=== PATIENT | female | born 1950 | race Caucasian/White ===

== ENCOUNTER 2017-12-25 14:35 | Outpatient (CLI) | payer MEDICARE ==
--- NOTE | 2017-12-25 17:50 | MRI ---
CERVICAL SPINE MRI WITHOUT CONTRAST: 12/25/17 HISTORY: Cervical radiculopathy. COMPARISON: None. TECHNIQUE: MRI cervical spine is performed without intravenous gadolinium administration. Multisequential, multi planar imaging is performed. FINDINGS: Appropriate T1 marrow signal intensity of the cervical vertebra. Vertebral body height is maintained. No fracture. 2 mm of anterolisthesis of C3 upon C4. Visualized brain parenchyma, cervicomedullary junction, cervical cord, and the upper thoracic cord craig s a normal size and signal intensity. No significant STIR hyperintensity to suggest vertebral body ed diana or ligamentous injury. C2-C3: No significant disc osteophyte complex. No significant central canal stenosis. Foramina are pa tent. C3-C4: No significant disc osteophyte complex. No significant central canal stenosis. Foramina are pa tent. C4-C5: Generalized disc bulge without significant central canal stenosis. Minimal right foraminal romero rowing. Left neural foramen is patent. C5-C6: There is a broad based disc osteophyte complex that abuts the thecal sac. No significant centr al canal stenosis. Right neural foramen is patent. Mild left foraminal narrowing. C6-C7: Broad based disc osteophyte complex with a small superior right sided disc extrusion. There i s abutment of the right aspect of the cervical cord just superior to the right C6-C7 disc space. Over all, there is mild central canal stenosis. There appears to be severe right foraminal narrowing. Left neural foramen is patent. C7-T1: No significant disc osteophyte complex. No significant central canal stenosis or foraminal romero rowing. IMPRESSION: Degenerative disc disease at C6-C7 with a superior right paracentral disc extrusion. There is encroac hment upon the right neural foramen with severe right neural foraminal narrowing at C6-C7. POS: [facility]
== END 2017-12-25 14:36 | disposition home or self-care (01) ==
LOC: SCSMRI 14:35
PROVIDERS: ATTEND Orthopaedic Surgery
DX: M50.123 Cervical disc disorder at C6-C7 level with radiculopathy (principal); M99.81 Other biomechanical lesions of cervical region
CPT/HCPCS: 72141

== ENCOUNTER 2019-09-16 08:17 | Outpatient (CLI) | payer MEDICARE ==
--- NOTE | 2019-09-16 10:48 | MRI ---
MRI LUMBAR SPINE WITHOUT CONTRAST: INDICATION: Low back pain with lumbar radiculopathy. COMPARISON: Comparison is made to a prior lumbar CT dated 2011. FINDINGS: The lumbar vertebrae maintain height. Loss of disk space with degenerative disk and end plate change s are seen at L4-5. The other disk spaces are preserved. The degenerative disk change at L4-5 has p rogressed since the prior CT scan. There is a grade I anterolisthesis at L4-5 which also has slightl y progressed since the prior study. Mild anterolisthesis was present at that time. There is diffuse broad-based bulge at this L4-5 level which compresses the thecal sac. There is associated facet and ligamentous hypertrophy and posterior epidural fat which also compress the thecal sac. These change s result in moderate to severe central canal stenosis at this level. There is bilateral foraminal na rrowing due to the broad-based bulge and listhesis. Foraminal stenosis more severe on the right. At L5-S1, there is a mild diffuse disk bulge abutting the anterior thecal sac. There is facet arthro sis and mild hypertrophy; however, no significant central canal stenosis. Mild bilateral foraminal n arrowing due to facet hypertrophy at this level. At L3-4, mild diffuse disk bulge. Facet and ligamentous hypertrophy. Mild central canal stenosis. At L2-3, no significant disk bulge. Mild facet hypertrophy. No central canal or foraminal stenosis. At L1-2, no disk bulge. No central canal or foraminal stenosis. IMPRESSION: 1. Degenerative disk and end plate changes at L4-5 with anterolisthesis as noted above. Moderate to severe central canal stenosis at this level with bilateral foraminal stenosis as described, more sev ere on the right as described above.. 2. See description at the other levels above. POS: [facility]
== END 2019-09-16 08:18 | disposition home or self-care (01) ==
LOC: SCSMRI 08:17
PROVIDERS: ATTEND Anesthesiology
DX: M51.17 Intervertebral disc disorders with radiculopathy, lumbosacral region (principal); M51.16 Intervertebral disc disorders with radiculopathy, lumbar region; M43.16 Spondylolisthesis, lumbar region; M48.061 Spinal stenosis, lumbar region without neurogenic claudication; M47.27 Other spondylosis with radiculopathy, lumbosacral region; M47.26 Other spondylosis with radiculopathy, lumbar region; M48.07 Spinal stenosis, lumbosacral region
CPT/HCPCS: 72148

== ENCOUNTER 2019-12-30 06:00 | Outpatient (CLI) | payer MEDICARE, OTHER ==
[2019-12-31 14:48] LABS: SARS-CoV-2 MS2 Positive; SARS-CoV-2 N Gene Negative; SARS-CoV-2 S Gene Negative; SARS-CoV-2 by NAA Not Detected (NotDetected); SARS-CoV-2 orf1ab Negative
== END 2019-12-30 06:01 | disposition home or self-care (01) ==
LOC: LABBT 06:00
PROVIDERS: ATTEND Neurological Surgery
DX: M43.16 Spondylolisthesis, lumbar region (principal); Z20.828 Contact with and (suspected) exposure to other viral communicable diseases
CPT/HCPCS: 87635; U0003

== ENCOUNTER 2020-01-04 07:31 | Day surgery (SDC) | payer MEDICARE ==
[2020-01-03 10:56] VITALS: BMI 22.4
--- NOTE | 2020-01-03 21:49 | HP ---
HISTORY OF PRESENT ILLNESS: Ms. López is a very pleasant 69-year-old woman presenting for lower back pain as well as significant lower extremity pain consistent with lumbar radiculopathy, the best fits in the L5 pattern. New MRI from [facility] reveals spondylolisthesis at L4-L5 with significant lateral recess and foraminal stenosis, that would certainly account for the pain she is experiencing. She has treated this with injections by Dr. Vee, which do help a great deal, but lose their efficacy rather quickly. She hopes to discuss surgical options. PAST MEDICAL HISTORY: Significant for chronic pain syndrome, headaches, arthritis, and anxiety. PAST SURGICAL HISTORY: section x2, unspecified shoulder surgery. MEDICATIONS: 1. Meloxicam. 2. Gabapentin. 3. Levothyroxine. 4. Alprazolam. 5. Atenolol. 6. Amitriptyline. 7. Baclofen. 8. Tramadol. ALLERGIES: NO KNOWN DRUG ALLERGIES. PHYSICAL EXAMINATION: GENERAL: The patient is alert and oriented x3. NEUROLOGIC: Gait is antalgic and slowed. ASSESSMENT: Lumbar spondylolisthesis with radiculopathy. PLAN: Dr. Guo met with the patient, reviewed imaging, advocated for L4-L5 facetectomy and fusion. He explained the patient risks, benefits, and alternatives to the procedure. The patient expressed understanding and elected to move forward with surgery as discussed. I do believe the patient is mentally competent and capable of making medical decisions for herself. We will move forward with surgery as planned. Job ID: [id number]
[2020-01-04] MEDS ORDERED: Fentanyl 250 MCG/5 ML VIAL ONE (08:31)
[2020-01-04] MEDS ORDERED: Midazolam HCl 2 mg/2 ml Vial ONE (08:31)
[2020-01-04] MEDS ORDERED: Acetaminophen 500 MG TAB ONE (08:44)
[2020-01-04] MEDS ORDERED: Thrombin 5000 UNITS/5 ML VIAL ONE (09:05)
[2020-01-04] MEDS ORDERED: ePHEDrine 50 MG/ML VIAL ONE (09:05)
[2020-01-04] MEDS ORDERED: EPINEPHrine 1 MG/ML AMP ONE (09:05)
[2020-01-04] MEDS ORDERED: Bupivacaine PF 0.5% 30 ML VIAL ONE (09:05)
[2020-01-04] MEDS ORDERED: Phenylephrine 10 MG/ML VIAL ONE (10:28)
[2020-01-04] MEDS ORDERED: HYDROmorphone 2 MG/ML VIAL ONE (11:34)
[2020-01-04] MEDS ORDERED: Ondansetron PF 4 MG/2 ML Vial ONE ×3 (12:13→16:04)
[2020-01-04] MEDS ORDERED: HYDROcodone/Acetaminophen 5/325 mg Tablet ONE (15:04)
[2020-01-04] MEDS ORDERED: PHENYLEPHRINE-NS 100 MCG/ML 10 ML SYRINGE ONE (15:31)
[2020-01-04] MEDS ORDERED: Lidocaine 1% PF 5 ML VIAL ONE (15:31)
[2020-01-04] MEDS ORDERED: Ketorolac Tromethamine 30 MG/ML VIAL ONE (15:31)
[2020-01-04] MEDS ORDERED: EPHEDRINE 25 MG/5 ML SYRINGE ONE ×2 (15:31)
[2020-01-04] MEDS ORDERED: PROPOFOL 200 MG/20 ML VIAL ONE (15:31)
[2020-01-04] MEDS ORDERED: Glycopyrrolate 0.2 MG/ML 5 ML SYRINGE ONE (15:31)
[2020-01-04] MEDS ORDERED: Rocuronium Bromide 10 MG/ML (10ML VIAL) ONE (15:31)
[2020-01-04] MEDS ORDERED: Dexamethasone 20 MG/5 ML VIAL ONE (15:31)
[2020-01-04] MEDS ORDERED: Promethazine HCl 25 MG/ML VIAL ONE (16:04)
--- NOTE | 2020-01-04 17:09 | OP ---
DATE OF PROCEDURE: 01/04/2020 STUDY LEAD: Jamie Harding PA-C INDICATION: Pain. DIAGNOSES: Lumbar radiculopathy and low back pain secondary to spondylolisthesis at L4-L5. PROCEDURES PERFORMED: Bilateral L4-L5 facetectomy, L4-L5 decompression, L4-L5 posterolateral instrumented fusion, placement of allograft, and placement of autograft. ANESTHESIA: General. DESCRIPTION OF PROCEDURE: The patient was brought into the operating room and placed under general anesthesia. She was flipped from the supine to prone position on the operating room table. A linear incision was planned over the L4-L5 segment. After prepping and draping and after an appropriate preoperative pause, the incision was created. The soft tissues were swept away from the midline. A self-retaining retractor was placed for optimal exposure. After confirming the appropriate level, C-arm fluoroscopy with high-speed cutting drill bit as well as 2, 3, and 4 mm Kerrison's were used to perform the bilateral hemilaminectomies at the L4-L5 interface. The laminectomies were extended laterally to encompass the medial aspect of the facet joints into the pedicles at L4 and L5. These would be palpated and into the lateral recesses at L4-L5 are well decompressed. After completing the decompression, pedicle screws were placed at L4-L5 bilaterally with an aid of C-arm fluoroscopy. An intra CT scan was performed, which confirmed appropriate placement of hardware. Rods were then placed across the screw heads and then finally tightened under slight degree of distraction on the right side. Allograft and autograft material was then placed within the lateral confines of the instrumentation construct. The wound was then irrigated. Hemostasis was maintained throughout. The wound was then closed in anatomic layers, and a pressure dressing was applied. There were no known procedural complications. Job ID: [id number]
== END 2020-01-04 17:40 | disposition home or self-care (01) ==
LOC: SDC 07:31
PROVIDERS: ATTEND Neurological Surgery
PROC: 0SG0071 Fusion of Lumbar Vertebral Joint with Autologous Tissue Substitute, Posterior Approach, Posterior Column, Open Approach (ICD-10-PCS; principal; 2020-01-04)
DX: M43.16 Spondylolisthesis, lumbar region (principal); M54.16 Radiculopathy, lumbar region; M48.061 Spinal stenosis, lumbar region without neurogenic claudication; G89.4 Chronic pain syndrome; M19.90 Unspecified osteoarthritis, unspecified site; F41.9 Anxiety disorder, unspecified; E03.9 Hypothyroidism, unspecified; F51.04 Psychophysiologic insomnia; M79.7 Fibromyalgia; Z79.1 Long term (current) use of non-steroidal anti-inflammatories (NSAID); Z79.899 Other long term (current) drug therapy; Z88.2 Allergy status to sulfonamides
CPT/HCPCS: 76000; 93005; 93010; C1713; C1768; J0171; J0690; J1100; J1170; J1885; J2250; J2370; J2405; J2550; J2704; J3010; J3490; S0020

== ENCOUNTER 2021-06-11 10:45 | Outpatient (CLI) | payer MEDICARE ==
[~2021-06-11 10:45] MED LIST: Iopamidol 370 76% 100 ML VIAL ONE
== END 2021-06-11 10:46 | disposition home or self-care (01) ==
LOC: BICCT 10:45
PROVIDERS: ATTEND Internal Medicine Gastroenterology
DX: R51.9 Headache, unspecified (principal); R11.2 Nausea with vomiting, unspecified
CPT/HCPCS: 70470; 82565

== ENCOUNTER 2024-01-11 14:58 | Outpatient (CLI) | payer MEDICARE ==
[2024-01-11 16:56] LABS: #Basophils 0.03 10x3/uL (0.0-0.2); %Basophils 0.7 % (0.0-1.0); %Eosinophils 3.1 % (0.0-10.0); %Lymphocytes 25.2 % (21.0-51.0); %Monocytes 10.6 % (0.0-10.0); %Neutrophils 59.7 % (42.0-75.0); Hematocrit 36.8 % (36.0-47.0); Hemoglobin 12.1 g/dL (12.0-16.0); Mean Corpuscular HGB CONC 32.9 g/dL (32.0-36.0); Mean Corpuscular Hemoglobin 31.8 pg (27.0-31.0); Mean Corpuscular Volume 96.6 fL (78.0-98.0); Mean Platelet Volume 9.3 fL (7.4-10.4); Platelet Count 277 10x3/uL (130-400); RBC Distribution Width 13.1 % (11.5-14.5); Red Blood Cell (RBC) Count 3.81 mill/uL (4.20-5.40)
[2024-01-11 17:11] LABS: Anion Gap 10 mmol/L (10-20); BUN (Urea Nitrogen) 18 mg/dL (9.8-20.1); Calc. Creatinine Clearance 0 mL/min (70-130); Calcium 9.5 mg/dL (7.8-10.44); Carbon Dioxide 26 mmol/L (23-31); Chloride 108 mmol/L (98-107); Estimated GFR 66; Glucose 100 mg/dL (83-110); Potassium 4.5 mmol/L (3.5-5.1); Sodium 139 mmol/L (136-145)
== END 2024-01-11 14:59 | disposition home or self-care (01) ==
LOC: LABBT 14:58
PROVIDERS: ATTEND Orthopaedic Surgery
DX: Z01.818 Encounter for other preprocedural examination (principal); S46.011A Strain of muscle(s) and tendon(s) of the rotator cuff of right shoulder, initial encounter
CPT/HCPCS: 80048; 85025; 93005; 93010

== ENCOUNTER 2024-01-13 05:40 | Day surgery (SDC) | payer MEDICARE ==
[2024-01-11 16:13] VITALS: BMI 23.3
[2024-01-13] MEDS ORDERED: fentaNYL 50 mcg/mL 1 mL Vial ONE (08:11)
[2024-01-13] MEDS ORDERED: Midazolam HCl 2 mg/2 ml Vial ONE (08:12)
[2024-01-13] MEDS ORDERED: Ropivacaine 0.5% HCl/PF (150 MG/30 ML VIAL) ONE (08:12)
[2024-01-13] MEDS ORDERED: fentaNYL 50 mcg/mL 1 mL Vial SLOW IVP PRN (09:31)
[2024-01-13] MEDS ORDERED: traMADol HCl 50 MG TAB PO PRN ×2 (09:45)
[2024-01-13] MEDS ORDERED: Ondansetron PF 4 MG/2 ML Vial IVP PRN (09:45)
[2024-01-13] MEDS ORDERED: Ropivacaine 0.2% 550 ML 550 ML NERVE BLCK SCH (09:45)
[2024-01-13] MEDS ORDERED: Promethazine HCl 25 MG/ML VIAL IM PRN (09:45)
[2024-01-13] MEDS ORDERED: HYDROcodone/Acetaminophen 10/325 mg Tablet PO PRN ×2 (09:45)
[2024-01-13] MEDS ORDERED: Zolpidem Tartrate 5 MG TAB PO PRN (09:45)
[2024-01-13] MEDS ORDERED: Vancomycin 1 GM/200 ML (FROZEN) BAG ONE (09:51)
[2024-01-13] MEDS ORDERED: CEFAZOLIN 2 GM VIAL ONE (09:58)
[2024-01-13] MEDS ORDERED: Sodium Chloride 0.9% 100 ML ONE (09:58)
[2024-01-13] MEDS ORDERED: Rocuronium Bromide 10 MG/ML (10ML VIAL) ONE ×2 (10:35→10:36)
[2024-01-13] MEDS ORDERED: PROPOFOL 20 ML ONE (10:35)
[2024-01-13] MEDS ORDERED: Lidocaine 1% PF 5 ML VIAL ONE (10:35)
[2024-01-13] MEDS ORDERED: Dexamethasone 20 MG/5 ML VIAL ONE ×2 (10:35)
[2024-01-13] MEDS ORDERED: Ondansetron PF 4 MG/2 ML Vial ONE ×2 (10:35)
[2024-01-13] MEDS ORDERED: fentaNYL PF 100 MCG/2 ML SYRINGE ONE (10:35)
[2024-01-13] MEDS ORDERED: Glycopyrrolate 0.2 MG/ML 5 ML SYRINGE ONE (11:21)
[2024-01-13] MEDS ORDERED: SUGAMMADEX SODIUM 200 MG/2 ML VIAL ONE (11:59)
[2024-01-13] MEDS ORDERED: Ketorolac Tromethamine 30 MG (1 mL) VIAL ONE (11:59)
[2024-01-13] MEDS ORDERED: Ketorolac Tromethamine 30 MG (1 mL) VIAL IVP SCH (12:00)
== END 2024-01-13 14:45 | disposition home or self-care (01) ==
LOC: SDC 05:40
PROVIDERS: ATTEND Orthopaedic Surgery
PROC: 0LS30ZZ Reposition Right Upper Arm Tendon, Open Approach (ICD-10-PCS; principal; 2024-01-13)
PROC: 3E0T3BZ Introduction of Anesthetic Agent into Peripheral Nerves and Plexi, Percutaneous Approach (ICD-10-PCS; 2024-01-13)
DX: S46.011A Strain of muscle(s) and tendon(s) of the rotator cuff of right shoulder, initial encounter (principal); F41.9 Anxiety disorder, unspecified; G47.00 Insomnia, unspecified; Z88.2 Allergy status to sulfonamides; Z98.890 Other specified postprocedural states; Z79.899 Other long term (current) drug therapy; W19.XXXA Unspecified fall, initial encounter
CPT/HCPCS: 23420; 64415; A4306; J2250; J1100; J1885; J2405; J2704; J2795 ×2; J3010; J3370